=== PATIENT | male | born 1960 | race Caucasian/White ===

== ENCOUNTER 2020-01-29 10:35 | Emergency (ER) | payer SELFPAY ==
--- NOTE | 2020-01-29 12:28 | RAD REPORT ---
EXAM DESCRIPTION: RAD - Hand Right 3 View - 01/29/2020 12:11 pm CLINICAL HISTORY: SMASH INJURY, blunt force trauma to the distal second digit COMPARISON: No comparisons FINDINGS: No fracture is identified. There is no dislocation or periosteal reaction noted. No acute or destructive bone process. IP joint degenerative changes are present. There are mild degenerative changes at the first MCP joint. No erosion of the joint spaces. No periarticular mass or calcificatio ns. IMPRESSION: Right hand degenerative change as detailed. No fracture identifiable.
[2020-01-29] MEDS ORDERED: BUPIVACAINE 0.5% PF 10 ML VIAL ONE (12:52)
[2020-01-29] MEDS ORDERED: TETANUS & DIPHTHERIA TOX,ADULT 0.5 ML VIAL ONE (12:53)
--- NOTE | 2020-01-29 14:01 | ER ---
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 Bleeding controlled. Coronavirus screen: Proceed with normal triage. Ebola Screen: No symptoms or risks identified at this time. Initial Sepsis Screen: Does the patient meet any 2 criteria? No. Patient's initial sepsis screen is negative. Does the patient have a suspected source of infection? No. Patient's initial sepsis screen is negative. Risk Assessment: Do you want to hurt yourself or someone else? Patient reports no desire to harm self or others. Onset of symptoms was January 29, 2020. 10:59 Method Of Arrival: Ambulatory hb 10:59 Acuity: FREDDY 3 hb Historical: - Allergies: 11:02 No Known Allergies; hb - Immunization history:: Adult Immunizations up to date. - Social history:: Smoking status: Patient denies any tobacco usage or history of. Screenin:07 Abuse screen: Denies threats or abuse. Nutritional screening: No deficits noted. ll1 Tuberculosis screening: No symptoms or risk factors identified. Fall Risk None identified. Assessment: 12:40 General: Appears in no apparent distress. Behavior is calm, cooperative, appropriate ll1 for age. Pain: Complains of pain in right hand 2nd digit Quality of pain is described as aching, Pain began 2 hours ago. Musculoskeletal: Circulation, motion, and sensation intact. Capillary refill < 3 seconds, Reports pain in Right hand 2nd digit. Injury Description: Laceration sustained to right hand 2nd digit no active bleeding noted at this time. 13:40 Reassessment: Patient appears in no apparent distress at this time. No changes from ll1 previously documented assessment. Patient and/or family updated on plan of care and expected duration. Pain level reassessed. Patient is alert, oriented x 3, equal unlabored respirations, skin warm/dry/pink. Vital Signs: 10:59 BP 164 / 100; Pulse 65; Resp 16; Temp 97.8; Pulse Ox 100% on R/A; Weight 74.84 kg; hb Height 5 ft. 7 in. (170.18 cm); Pain 8/10; 10:59 Body Mass Index 25.84 (74.84 kg, 170.18 cm) ED Course: 10:35 Patient arrived in ED. as 11:01 Triage completed. hb 11:02 Arm band placed on. hb 12:03 Maude Daniel, SOCRATES is Primary Nurse. ll1 12:05 Tramaine Ferreira PA is PHCP. [facility] 12:05 Miguelito Lechuga MD is Attending Physician. [facility] 12:11 Hand Right 3 View XRAY In Process Unspecified. EDMS 13:07 Patient has correct armband on for positive identification. Bed in low position. Call ll1 light in reach. Side rails up X 1. 14:12 No provider procedures requiring assistance completed. Patient did not have IV access vc during this emergency room visit. 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 Exp: ll1 09/28/2021. Lot #: [id number]. } Route: IM; Site: right deltoid; 13:10 Follow up: Response: No adverse reaction; RASS: Alert and Calm (0) ll1 12:51 Drug: Marcaine (0.5 %) 10 ml Volume: 10 ml; Route: Infiltration; ll1 13:10 Follow up: Response: No adverse reaction ll1 Outcome: 14:00 Discharge ordered by . [facility] 14:12 Discharged to home ambulatory, with significant other. vc 14:12 Condition: stable 14:12 Discharge instructions given to patient, significant other, Instructed on discharge instructions, follow up and referral plans. medication usage, wound care, Demonstrated understanding of instructions, follow-up care, medications, wound care, Prescriptions given X 1. 14:13 Patient left the ED. vc Signatures: Dispatcher [employer] EDMS Tramaine Ferreira PA PA jmm Martinez, Amelia as Baxter, Heather, RN RN Marli Randall RN RN vc Maude Daniel, SOCRATES RN ll1
--- NOTE | 2020-01-29 14:01 | EDPHYS ---
Physician Documentation [facility] Name: Felix Verma Age: 59 yrs Sex: Male : 1960 Arrival Date: 01/29/2020 Time: 10:35 Bed 25 Private MD: ED Physician Miguelito Lechuga HPI: 01/28 12:41 This 59 yrs old Male presents to ER via Ambulatory with complaints of Finger jmm Injury. 12:41 The patient or guardian reports injury, pain. Onset: The symptoms/episode jmm began/occurred acutely, just prior to arrival. Modifying factors: The symptoms are alleviated by nothing, the symptoms are aggravated by nothing. Associated signs and symptoms: Pertinent negatives: decreased sensation distally, fever, numbness distally, tingling distally, vomiting. This is a 59 year old male with no chronic medical conditions that presents to the ED with complaints of right index finger pain. Patient states his finger got caught in an engine belt Denies other injury. . Historical: - Allergies: 11:02 No Known Allergies; hb - Immunization history:: Adult Immunizations up to date. - Social history:: Smoking status: Patient denies any tobacco usage or history of. ROS: 12:41 Constitutional: Negative for fever, chills, and weight loss, Cardiovascular: Negative jmm for chest pain, palpitations, and edema, Respiratory: Negative for shortness of breath, cough, wheezing, and pleuritic chest pain. 12:41 MS/extremity: Positive for injury or acute deformity, pain. 12:41 All other systems are negative. Exam: 12:41 Constitutional: This is a well developed, well nourished patient who is awake, alert, jmm and in no acute distress. Head/Face: atraumatic. Eyes: EOMI, no conjunctival erythema appreciated ENT: Moist Mucus Membranes Neck: Trachea midline, Supple Chest/axilla: Normal chest wall appearance and motion. Cardiovascular: Regular rate and rhythm. No edema appreciated Respiratory: Normal respirations, no respiratory distress appreciated Abdomen/GI: Non distended, soft Back: Normal ROM 12:41 Musculoskeletal/extremity: FROM appreciated to the right pip and dip, < 2 sec dist cap refill. 12:41 Skin: maceration noted to the right distal 2nd finger. 12:41 Neuro: Orientation: is normal, Mentation: is normal, Memory: is normal. 12:41 Psych: Behavior/mood is pleasant, cooperative. Vital Signs: 10:59 BP 164 / 100; Pulse 65; Resp 16; Temp 97.8; Pulse Ox 100% on R/A; Weight 74.84 kg; hb Height 5 ft. 7 in. (170.18 cm); Pain 8/10; 10:59 Body Mass Index 25.84 (74.84 kg, 170.18 cm) hb Laceration: 13:59 Wound Repair of 2cm ( 0.8in ) subcutaneous laceration to palmar aspect of distal jmm phalanx of right index finger. Distal neuro/vascular/tendon intact. Anesthesia: Digital block administered with 4 mls of 0.5% marcaine. Wound prep: Simple cleansing with betadine by me. Skin closed with 6 5-0 Prolene using simple sutures and sterile technique. Patient tolerated well. MDM: 12:09 Patient medically screened. alda 13:59 Data reviewed: vital signs, nurses notes. Counseling: I had a detailed discussion with patrick the patient and/or guardian regarding: the historical points, exam findings, and any diagnostic results supporting the discharge/admit diagnosis, radiology results, the need for outpatient follow up, to return to the emergency department if symptoms worsen or persist or if there are any questions or concerns that arise at home. ED course: Patient given wound infection return precautions. Patient understood and agrees with the plan of care. . 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 Exp: ll1 09/28/2021. Lot #: [id number]. } Route: IM; Site: right deltoid; 13:10 Follow up: Response: No adverse reaction; RASS: Alert and Calm (0) ll1 12:51 Drug: Marcaine (0.5 %) 10 ml Volume: 10 ml; Route: Infiltration; ll1 13:10 Follow up: Response: No adverse reaction ll1 Disposition: 15:45 Co-signature as Attending Physician, Miguelito Lechuga MD I agree with the assessment and alda plan of care. Disposition: 01/29/20 14:00 Discharged to Home. Impression: Finger laceration. - Condition is Stable. - Discharge Instructions: Laceration Care, Adult. - Prescriptions for Bactrim DS 800- 160 mg Oral Tablet - take 1 tablet by ORAL route every 12 hours for 10 days; 20 tablet. - Medication Reconciliation Form, Thank You Letter, Antibiotic Education, Prescription Opioid Use form. - Follow up: Private Physician; When: 2 - 3 days; Reason: Recheck today's complaints, Continuance of care, Re-evaluation by your physician. Signatures: Dispatcher [employer] EDMS Miguelito Lechuga MD MD cha Mickail, Joel, PA PA jmm Baxter, Heather, RN RN Marli Randall RN RN vc Lewis, Lynsay, RN RN ll1 Corrections: (The following items were deleted from the chart) 14:13 14:00 01/29/2020 14:00 Discharged to Home. Impression: Finger laceration. Condition is vc Stable. Forms are Medication Reconciliation Form, Thank You Letter, Antibiotic Education, Prescription Opioid Use. Follow up: Private Physician; When: 2 - 3 days; Reason: Recheck today's complaints, Continuance of care, Re-evaluation by your physician. patrick
[2020-01-29 14:22] VITALS: BP 164/100; TEMP 97.8; O2SAT 100
== END 2020-01-29 14:13 | disposition home or self-care (01) ==
LOC: ER 10:35
PROC: 0JQJ0ZZ Repair Right Hand Subcutaneous Tissue and Fascia, Open Approach (ICD-10-PCS; principal; 2020-01-29)
DX: S61.210A Laceration without foreign body of right index finger without damage to nail, initial encounter (principal); W45.8XXA Other foreign body or object entering through skin, initial encounter; Y93.89 Activity, other specified; Y92.9 Unspecified place or not applicable; Z23 Encounter for immunization
CPT/HCPCS: 90471; 90714; 99283

== ENCOUNTER 2020-02-13 09:14 | Emergency (ER) | payer SELFPAY ==
--- NOTE | 2020-02-13 09:37 | ER ---
Nurse's Notes [facility] Name: Felix Verma Age: 59 yrs Sex: Male : 1960 Arrival Date: 02/13/2020 Time: 09:16 Bed 16 Private MD: Diagnosis: Encounter for removal of sutures-right index finger Presentation: 02/12 09:26 Chief complaint: Patient states: encounter for suture removal. Coronavirus screen: 09:26 Method Of Arrival: Ambulatory 09:26 Acuity: FREDDY 5 09:46 Ebola Screen: No symptoms or risks identified at this time. Initial Sepsis Screen: Does ph the patient meet any 2 criteria? No. Patient's initial sepsis screen is negative. Does the patient have a suspected source of infection? No. Patient's initial sepsis screen is negative. Risk Assessment: Do you want to hurt yourself or someone else? Patient reports desire/thoughts of hurting themselves or someone else. Provider notified. Onset of symptoms was February 13, 2020. Triage Assessment: 09:45 General: Appears in no apparent distress. comfortable, well groomed, Behavior is calm, ph cooperative, appropriate for age, Denies fever, feeling ill. Historical: - Allergies: 09:47 No Known Allergies; ph - Immunization history:: Adult Immunizations unknown. - Social history:: Smoking status: unknown. Screenin:45 Abuse screen: Denies threats or abuse. Denies injuries from another. Nutritional ph screening: No deficits noted. Tuberculosis screening: No symptoms or risk factors identified. Fall Risk None identified. Assessment: 09:47 General: Appears in no apparent distress. comfortable, well groomed, Behavior is calm, ph cooperative, appropriate for age. Pain: Denies pain. Neuro: Level of Consciousness is awake, alert, obeys commands, Oriented to person, place, time, situation. Cardiovascular: Capillary refill < 3 seconds in bilateral fingers Patient's skin is warm and dry. Respiratory: Airway is patent Respiratory effort is even, unlabored. Derm: Skin is healthy with good turgor, Skin is pink, warm \T\ dry. Vital Signs: 09:32 BP 123 / 76; Pulse 69; Resp 16; Temp 98.0; Pulse Ox 100% on R/A; Pain 0/10; em1 ED Course: 09:16 Patient arrived in ED. ag5 09:23 Millicent Horvath, RN is Primary Nurse. ph 09:26 Miguelito Anderson PA is PHCP. cp 09:26 Melvin Perez MD is Attending Physician. cp 09:26 Triage completed. ss 09:46 Arm band placed on left wrist. ph 09:46 No provider procedures requiring assistance completed. Patient did not have IV access ph during this emergency room visit. 09:48 Patient has correct armband on for positive identification. Bed in low position. Call ph light in reach. Administered Medications: No medications were administered Outcome: 09:36 Discharge ordered by MD. cp 09:48 Discharged to home ambulatory. ph 09:48 Condition: good 09:48 Discharge instructions given to patient, Instructed on discharge instructions, follow up and referral plans. Demonstrated understanding of instructions, follow-up care. 09:48 Patient left the ED. ph Signatures: Darren Slaughter em1 Delphine Tipton RN RN Millicent Horvath RN RN Miguelito Anderson PA PA cp Gaskin, Ajare ag5
[2020-02-13 09:55] VITALS: BP 123/76; TEMP 98; O2SAT 100
--- NOTE | 2020-02-14 09:48 | EDPHYS ---
Physician Documentation [facility] Name: Felix Verma Age: 59 yrs Sex: Male : 1960 Arrival Date: 02/13/2020 Time: 09:16 Bed 16 Private MD: ED Physician Melvin Perez HPI: 02/12 09:35 This 59 yrs old Male presents to ER via Ambulatory with complaints of Suture cp Removal. 09:35 The patient has sutures on the right index finger. cp 09:35 Previous treatment: The patient was initially treated on January 29, 2020, the care was cp rendered at [facility], Treatment type: The patient's original treatment included sutures. Sutures/alfredo progress: The patient has no c/o's. The wound is well-healing with no redness, swelling, discharge, or dehiscence reported. Historical: - Allergies: 09:47 No Known Allergies; ph - Immunization history:: Adult Immunizations unknown. - Social history:: Smoking status: unknown. ROS: 09:35 Skin: Positive for laceration(s), of the right index finger. cp 09:35 Constitutional: Negative for body aches, chills, fever. cp 09:35 Cardiovascular: Negative for chest pain. 09:35 Respiratory: Negative for cough, shortness of breath, wheezing. 09:35 Abdomen/GI: Negative for abdominal pain, nausea, vomiting, and diarrhea. 09:35 All other systems are negative. Exam: 09:35 Constitutional: The patient appears in no acute distress, alert, awake, well developed, cp well nourished. 09:35 Skin: Wound recheck: Suture laceration closure: the edges are well approximated, no evidence of dehiscence, no drainage, no erythema, no swelling. Vital Signs: 09:32 BP 123 / 76; Pulse 69; Resp 16; Temp 98.0; Pulse Ox 100% on R/A; Pain 0/10; em1 Procedures: 09:36 Suture/Staple removal: Removed 5 sutures, from distal phalanx right index finger, site cp appears well healed, Patient tolerated well. MDM: 09:34 Patient medically screened. cp 09:36 Data reviewed: vital signs, nurses notes, and as a result, I will discharge patient. cp 09:36 Counseling: I had a detailed discussion with the patient and/or guardian regarding: the cp historical points, exam findings, and any diagnostic results supporting the discharge/admit diagnosis, to return to the emergency department if symptoms worsen or persist or if there are any questions or concerns that arise at home. Administered Medications: No medications were administered Disposition: 02/13/20 09:36 Discharged to Home. Impression: Encounter for removal of sutures - right index finger. - Condition is Stable. - Discharge Instructions: Suture Removal, Care After. - Medication Reconciliation Form, Thank You Letter, Antibiotic Education, Prescription Opioid Use form. - Follow up: Private Physician; When: 2 - 3 days; Reason: Worsening of condition. - Problem is new. - Symptoms have improved. Addendum: 02/14/2020 11:58 Co-signature as Attending Physician, Melvin Perez MD I agree with the assessment and k dr plan of care. Signatures: Melvin Perez MD MD kdr Millicent Horvath RN RN ph Miguelito Anderson PA PA cp Corrections: (The following items were deleted from the chart) 02/12 09:48 09:36 02/13/2020 09:36 Discharged to Home. Impression: Encounter for removal of sutures ph - right index finger. Condition is Stable. Forms are Medication Reconciliation Form, Thank You Letter, Antibiotic Education, Prescription Opioid Use. Follow up: Private Physician; When: 2 - 3 days; Reason: Worsening of condition. Problem is new. Symptoms have improved. cp
== END 2020-02-13 09:48 | disposition home or self-care (01) ==
LOC: ER 09:14
DX: Z48.02 Encounter for removal of sutures (principal)
CPT/HCPCS: 99281